=== PATIENT | male | born 1995 | race Two or more races ===

== ENCOUNTER 2022-07-18 21:40 | Inpatient (IN) | payer MEDICAID, OTHER ==
[~2022-07-18] VITALS: Ht 152.4 cm; Wt 54.0 kg
--- NOTE | 2022-07-18 21:56 | NUR ---
PATIENT WAS BROUGHT IN VIA AMBULENCE FOR UNWITNESSED SEIZURE WITH HISTORY OF SEIZURES. PATIENT HAD NO ORAL TRAUMA, NO INCONTINENCE. PATIENT AXO X0 AND IS RESPONSIVE TO PAINFUL STIMULI. PLACED ON SEIZURE PERCAUTION WITH HEAD OF THE BED ELEVATED AND HEAD TILED TO THE SIDE TO PREVENT ASPIRATION IN AN EVENT OF VOMITING. PATIENT ON MONITOR AND WILL CONTINUE TO MONITOR. VITAL SIGNS WNL
[2022-07-18 22:29] LABS: BASOPHILS # (AUTO) 0.2 K/uL (0.0-0.2); EOSINOPHILS % (AUTO) 0.4 % (0.0-6.0); HEMATOCRIT 31 % (39-51); HEMOGLOBIN 10.6 g/dL (13.5-17.5); LYMPHOCYTES # (AUTO) 1.4 K/uL (0.8-4.8); LYMPHOCYTES % (AUTO) 46.6 % (20.0-44.0); MEAN CORPUSCULAR HGB CONC 35 g/dl (31.0-36.0); MEAN CORPUSCULAR VOLUME 93 fL (80-96); MONOCYTES # (AUTO) 0.3 K/uL (0.1-1.30); MONOCYTES % (AUTO) 10.9 % (2.0-12.0); NEUTROPHILS # (AUTO) 1.1 K/uL (1.8-8.9); NEUTROPHILS % (AUTO) 36.7 % (43.0-81.0); PLATELET COUNT (AUTO) 119 K/uL (150-450); RED BLOOD CELL COUNT(AUTO) 3.28 MIL/uL (4.5-6.0); WHITE BLOOD COUNT (AUTO) 3.1 K/uL (4.3-11.0)
[2022-07-18 22:32] LABS: BASOPHILS % (AUTO) 5.4 % (0.0-2.0)
[2022-07-18 22:35] LABS: CALCIUM, SERUM 7.8 mg/dL (8.5-10.1); CREATININE 0.6 mg/dL (0.6-1.3); POTASSIUM 3.2 mmol/L (3.5-5.1)
[2022-07-18 22:42] LABS: ALBUMIN 3.1 g/dL (3.4-5.0); BILIRUBIN,DIRECT 0.5 mg/dL (0.0-0.2); BILIRUBIN,TOTAL 0.7 mg/dL (0.2-1.0); TOTAL PROTEIN, SERUM 6.7 g/dL (6.4-8.2)
[2022-07-19] MEDS ORDERED: LACTULOSE 10 G/15 ML UDC (PYXIS) PO ONE
--- NOTE | 2022-07-19 00:07 | NUR ---
COVID SWAB COLLECTED
--- NOTE | 2022-07-19 01:07 | NUR ---
epic panel paged
[2022-07-19] MEDS ORDERED: LACTULOSE 10 G/15 ML UDC (PYXIS) ONE (01:21)
[2022-07-19] MEDS ORDERED: MAGNESIUM HYDROXIDE 30 ML UDC PO PRN (01:30)
[2022-07-19] MEDS ORDERED: Thiamine 100 MG in IV D5W 50 ML IV SCH ×2 (01:30→19:00)
[2022-07-19] MEDS ORDERED: Folic acid 1 MG in IV D5W 50 ML IV SCH ×2 (01:30→11:00)
[2022-07-19] MEDS ORDERED: Z GUARD REMEDY 4 OZ OINT TP PRN (01:30)
[2022-07-19] MEDS ORDERED: ACETAMINOPHEN 325 MG TABLET PO PRN (01:30)
[2022-07-19] MEDS ORDERED: MAG HYDROX/AL HYDROX/SIMETH 30 ML UDC PO PRN (01:30)
[2022-07-19] MEDS ORDERED: ONDANSETRON HCL/PF 4 MG/2 ML VIAL IVP PRN (01:30)
--- NOTE | 2022-07-19 01:31 | NUR ---
REPORT GIVEN TO ASHLEY DOVER FOR SYLVIA
[2022-07-19 01:48] VITALS: BP 92/60
--- NOTE | 2022-07-19 02:15 | NUR ---
CERTIFIED PHLEBOTOMISTMATHEMATICAL ENGINEER NOTE RECEIVED PATIENT IN BED; AWAKE, ALERT AND ORIENTED X 1. BREATHING EVEN AND NONLABORED. ON ROOM AIR; TOLERATING WELL. WITH IV ACCESS ON LEFT WRIST 20G; PATENT, INTACT AND SALINE LOCKED. NOT IN ANY FORM OF RESPIRATORY DISTRESS. ON TELEMETRY MONITORING WITH READING OF SR 80 BPM. INVENTORY OF PERSONAL BELONGINGS DONE. SAFETY MEASURES IMPLEMENTED: PAD SIDE RAILS, CALL LIGHT AND TABLE WITHIN REACH, SIDE RAILS UP X 3, BED IN LOWEST LOCKED POSITION. WILL CONTINUE TO MONITOR.
[2022-07-19] MEDS: IV D5/0.45 NACL 1,000 ML IV PRN ×2 (02:56→20:41)
--- NOTE | 2022-07-19 03:45 | NUR ---
RN NOTE PT PULLED IV LINE; PRESSURE DRESSING IN PLACED. NO BLEEDING. REMOVED TELEBOX; PLACED ON STAND BY MODE. CN AWARE. IV REINSERTION DONE AT RIGHT AC 20G; PATENT, INTACT AND SALINE LOCKED.
[2022-07-19 04:00] VITALS: BP 95/63
[2022-07-19] MEDS: LORAZEPAM INJ 2 MG/ML VIAL IV PRN (04:16)
--- NOTE | 2022-07-19 04:16 | NUR ---
RN NOTE PT IS TRYING TO REMOVE HIS IV LINE, THROWING LINENS. PRN ATIVAN 0.5 MG GIVEN IVP ORDERED; WILL CONTINUE TO MONITOR PT.
--- NOTE | 2022-07-19 05:00 | NUR ---
RN NOTE FOLIC ACID 1MG IN IV D5W 50 ML NOT GIVEN; NOT AVAILABLE. BLADE GROOVER TEO AND JAMIE; AWARE. WILL ENDORSED TO MORNING SHIFT.
[2022-07-19] MEDS ORDERED: Thiamine 100 MG/ML VIAL ONE (05:42)
--- NOTE | 2022-07-19 06:45 | NUR ---
RN NOTE PT POTASSIUM LEVEL IS 3.2. DREDGE WORKER HOSPITALIST TANYA TRUJILLO MADE AWARE; AWAITING FOR REPLY. WILL ENDORSED TO CHRIS DOVER FOR FOLLOW UP.
[2022-07-19] MEDS ORDERED: LACTULOSE UDC 200 G in SODIUM CHLORIDE IRRIG SOLUTION 400 ML IR ONE (07:00)
--- NOTE | 2022-07-19 07:20 | NUR ---
CONTINUING EDUCATION DIRECTOR CLOSING NOTE PATIENT IN BED; ASLEEP; EASILY AROUSABLE; A/O X1. RESPIRATION EVEN AND UNLABORED. STABLE ON ROOM AIR. NO S/S OF RESPIRATORY DISTRESS. NO S/S OF PAIN OR DISCOMFORT. NEEDS ATTENDED. SAFETY MEASURES IN PLACE. ENDORSED TO MORNING SHIFT FOR SYLVIA.
--- NOTE | 2022-07-19 07:25 | NUR ---
RN OPENING NOTES RECEIVED PATIENT IN BED ASLEEP, EASILY AROUSED, OF SIGNS OF ACUTE DISTRESS NOTED. ON ROOM AIR TOLERATING WELL. NO SOB NOTED, BREATHING EVEN AND UNLABORED. NOTED WITH IV ACCESS ON RIGHT ANTECUBITAL #20G, INTACT AND PATENT, WITH IVF D5 1/2 NS @100ML/HR, INFUSING WELL. SAFETY AND SEIZURE PRECAUTIONS OBSERVED, BED IN LOWEST AND LOCKED POSITION, SIDE RAILS UP X3, CALL LIGHT PLACED WITHIN EASY REACH. WILL CONTINUE TO MONITOR PATIENT.
[2022-07-19 08:00] VITALS: BP 94/69
[2022-07-19] MEDS: PANTOPRAZOLE 40 MG VIAL IV SCH (08:12)
[2022-07-19 09:10] LABS: BILIRUBIN,DIRECT 0.4 mg/dL (0.0-0.2); BILIRUBIN,TOTAL 0.7 mg/dL (0.2-1.0); TOTAL PROTEIN, SERUM 6.6 g/dL (6.4-8.2)
--- NOTE | 2022-07-19 09:51 | NUR ---
RN NOTE SEEN BY DR. SALAZAR, PATIENT C/O PAIN ON LEFT ANKLE AND ALSO NOTED WITH BLOOD BLISTER? MD ORDERED LEFT ANKLE X-RAY AND WOUND CARE CONSULT, ORDERS NOTED AND CARRIED OUT. ASKED MD IF HE STILL WANTS THE LACTULOSE IRRIGATION TO BE GIVEN, PER MD HE'LL LOOK AT PATIENTS CHART AND MIGHT JUST GIVE PO.
--- NOTE | 2022-07-19 10:37 | NUR ---
RN NOTE LEFT ANKLE X-RAY DONE.
[2022-07-19] MEDS: LACTULOSE 10 G/15 ML UDC (PYXIS) PO SCH ×3 (11:40→23:45)
[2022-07-19 17:00] VITALS: BP 105/71
--- NOTE | 2022-07-19 18:30 | NUR ---
RN NOTE LEFT ANKLE XRAY RESULT RELAYED TO DR. SALAZAR WITH ORDER FOR ORTHO CONSULT. CN ASHLEY AWARE. ORTHO CONSULT ORDERED.
--- NOTE | 2022-07-19 18:54 | NUR ---
RN CLOSING NOTES PATIENT IN BED ASLEEP, EASILY AROUSED, A/PO X4, VERBALLY RESPONSIVE. NO SIGNS OF ACUTE DISTRESS NOTED. STABLE ON ROOM AIR, NO SOB NOTED, BREATHING EVEN AND UNLABORED. IV ACCESS ON RIGHT ANTECUBITAL #20G, INTACT AND PATENT, WITH IVF D5 1/2 NS @100ML/HR, INFUSING WELL. SAFETY AND SEIZURE PRECAUTIONS OBSERVED, BED IN LOWEST AND LOCKED POSITION, SIDE RAILS UP X3, CALL LIGHT PLACED WITHIN EASY REACH. WILL ENDORSE TO N EXT SHIFT FOR SYLVIA.
--- NOTE | 2022-07-19 20:00 | NUR ---
RN OPENING NOTE: PATIENT RECEIVED IN BED AWAKE. A/O X4, PLEASANT AND COOPERATIVE. DENIES PAIN. VITAL SIGNS STABLE. TOLERATING ROOM AIR WITHOUT ANY PROBLEMS. NO SOB OR DYSPNEA NOTED. BREATHING IS EVEN AND UNLABORED. IV ACCESS TO RIGHT ANTECUBITAL #20G, INTACT AND PATENT, WITH IV D5 1/2 NS @100ML/HR, INFUSING WELL. SAFETY AND SEIZURE PRECAUTIONS OBSERVED: BED IN LOWEST AND LOCKED POSITION, SIDE RAILS UP X3, CALL LIGHT PLACED WITHIN EASY REACH. WILL CONTINUE TO MONITOR PATIENT.
[2022-07-20] MEDS: LACTULOSE 10 G/15 ML UDC (PYXIS) PO SCH ×4 (05:17→23:28)
[2022-07-20] MEDS: PANTOPRAZOLE 40 MG VIAL IV SCH (06:33)
[2022-07-20 06:59] LABS: BASOPHILS # (AUTO) 0.2 K/uL (0.0-0.2); BASOPHILS % (AUTO) 4.4 % (0.0-2.0); EOSINOPHILS % (AUTO) 0.4 % (0.0-6.0); HEMATOCRIT 31 % (39-51); LYMPHOCYTES # (AUTO) 0.9 K/uL (0.8-4.8); LYMPHOCYTES % (AUTO) 22.5 % (20.0-44.0); MEAN CORPUSCULAR HGB CONC 35 g/dl (31.0-36.0); MEAN CORPUSCULAR VOLUME 92 fL (80-96); MONOCYTES # (AUTO) 0.3 K/uL (0.1-1.30); MONOCYTES % (AUTO) 7.4 % (2.0-12.0); NEUTROPHILS # (AUTO) 2.7 K/uL (1.8-8.9); NEUTROPHILS % (AUTO) 65.3 % (43.0-81.0); PLATELET COUNT (AUTO) 134 K/uL (150-450); RED BLOOD CELL COUNT(AUTO) 3.38 MIL/uL (4.5-6.0); WHITE BLOOD COUNT (AUTO) 4.2 K/uL (4.3-11.0)
[2022-07-20 07:00] VITALS: BP 135/73
--- NOTE | 2022-07-20 07:27 | NUR ---
WOUND CARE CONSULT: PT PRESENTS WITH LEFT GREAT TOE DRY ESCHAR, PRESENT ON ADMISSION. DR GARSIA FOLLOWING PT. MD IN AGREEMENT WITH PLAN OF CARE.
--- NOTE | 2022-07-20 07:30 | NUR ---
RN OPENING NOTE- PATIENT IN BED AWAKE. A/O X4, NO EVIDENCE OF WITHDRAWAL OR DETOX SYMPTOMS, NO DT, NO TREMULOUSNESS, VS STABLE, NO DIAPHORESIS OR ANXIOUSNESS, DENIES PAIN. TOLERATING ROOM AIR. NO SOB OR DYSPNEA NOTED. BREATHING IS EVEN AND UNLABORED. IV ACCESS TO RIGHT ANTECUBITAL #20G, INTACT AND PATENT, WITH IV D5 1/2 NS @100ML/HR, INFUSING WELL. SAFETY AND SEIZURE PRECAUTIONS OBSERVED: BED IN LOWEST AND LOCKED POSITION, SIDE RAILS UP X3, CALL LIGHT PLACED WITHIN EASY REACH. WILL CONTINUE TO MONITOR PATIENT. ASSIST PRN
[2022-07-20 07:44] LABS: CALCIUM, SERUM 7.8 mg/dL (8.5-10.1); PHOSPHORUS 3.6 mg/dL (2.5-4.9); POTASSIUM 3.4 mmol/L (3.5-5.1)
--- NOTE | 2022-07-20 08:19 | NUR ---
RN CLOSING NOTE: PATIENT LYING IN BED AWAKE, A/O X4. ALL DUE MEDS GIVEN DURING NIGHT. DENIES PAIN. VITAL SIGNS STABLE. TOLERATING ROOM AIR WITHOUT ANY PROBLEMS. NO SOB OR DYSPNEA NOTED. BREATHING IS EVEN AND UNLABORED. IV ACCESS TO RIGHT ANTECUBITAL #20G, INTACT AND PATENT, WITH IV D5 1/2 NS @100ML/HR, INFUSING WELL. SAFETY AND SEIZURE PRECAUTIONS MAINTAINED: BED IN LOWEST AND LOCKED POSITION, SIDE RAILS UP X3, CALL LIGHT PLACED WITHIN EASY REACH. WILL ENDORSE TO NEXT SHIFT FOR SYLVIA.
[2022-07-20 09:13] LABS: MAGNESIUM 0.9 mg/dL (1.8-2.4)
--- NOTE | 2022-07-20 09:41 | NUR ---
RN NOTE LAB PHONED CRITICAL VALUE MG-0.9. DR. SALAZAR NOTIFIED AND ORDERED 4G MG-COMPLIED.
[2022-07-20 09:47] LABS: THYROID STIMULATING HORMONE 3.125 uIU/mL (0.358-3.74)
[2022-07-20] MEDS ORDERED: Magnesium 1GM/D5W 100ML PREMIX 100 ML IV SCH (10:00)
[2022-07-20] MEDS: MAGNESIUM OXIDE 400 MG TABLET PO SCH ×2 (11:02→12:13)
[2022-07-20] MEDS: FOLIC ACID 1 MG TABLET PO SCH (11:02)
[2022-07-20] MEDS: LORAZEPAM INJ 2 MG/ML VIAL IV PRN ×2 (11:18→20:02)
--- NOTE | 2022-07-20 11:19 | NUR ---
RN NOTE NOTED TREMULOUSNESS AND ANXIETY, ATIVAN 1MG IVP ADMINISTERED. WILL CONTINUE TO MONITOR.
[2022-07-20 12:00] VITALS: BP 127/94
--- NOTE | 2022-07-20 14:39 | NUR ---
SS consult requested for alcohol use disorder, SW will follow up at a later time.
[2022-07-20 16:00] VITALS: BP 116/75
[2022-07-20] MEDS: THIAMINE HCL 100 MG TABLET PO SCH (18:07)
--- NOTE | 2022-07-20 18:48 | NUR ---
RN CLOSING NOTE Patient in bed, awake, alert and oriented x4. Able to make needs known. Afebrile and not on any form of acute distress. No SOB/wheezing noted. Medicated as ordered. No seizure activity, no tremors or agitation noted after ativan administration. Restarted IV hydration of D5 1/2NS infusing well regulated at 100cc/hr, patient was refusing IVF earlier in shift. Offered and encouraged fluids as tolerated. Safety measures in place. Bed in lowest position. Call light within easy reach. Side rails up for safety. All nursing needs attended.
[2022-07-20 20:00] VITALS: BP 121/80
--- NOTE | 2022-07-20 20:30 | NUR ---
RN OPENING NOTE: PATIENT LYING IN BED AWAKE. A/O X 4 AND ABLE TO MAKE NEEDS KNOWN. NO SOB OR DYSPNEA NOTED. BREATHING IS EVEN AND UNLABORED. VITAL SIGNS STABLE. NO SIGNS OF WITHDRAWAL OR DETOX SYMPTOMS. NO DELIRIUM TREMORS NOTED. DENIES PAIN. TOLERATING ROOM AIR. IV ACCESS TO RIGHT ANTECUBITAL #20G, INTACT AND PATENT, WITH IV D5 1/2 NS @100ML/HR, INFUSING WELL. SAFETY AND SEIZURE PRECAUTIONS OBSERVED: BED IN LOWEST AND LOCKED POSITION, SIDE RAILS UP X3, CALL LIGHT PLACED WITHIN EASY REACH. WILL CONTINUE TO MONITOR PATIENT.
[2022-07-21] VITALS: BP 131/67
[2022-07-21] MEDS: IV D5/0.45 NACL 1,000 ML IV PRN ×2 (01:27→21:32)
[2022-07-21] MEDS: LACTULOSE 10 G/15 ML UDC (PYXIS) PO SCH ×4 (04:48→23:34)
[2022-07-21 06:41] LABS: BASOPHILS # (AUTO) 0.2 K/uL (0.0-0.2); BASOPHILS % (AUTO) 4.1 % (0.0-2.0); EOSINOPHILS % (AUTO) 1.5 % (0.0-6.0); HEMATOCRIT 33 % (39-51); HEMOGLOBIN 11.1 g/dL (13.5-17.5); LYMPHOCYTES # (AUTO) 1.4 K/uL (0.8-4.8); LYMPHOCYTES % (AUTO) 30.7 % (20.0-44.0); MEAN CORPUSCULAR HGB CONC 34 g/dl (31.0-36.0); MEAN CORPUSCULAR VOLUME 94 fL (80-96); MONOCYTES # (AUTO) 0.4 K/uL (0.1-1.30); MONOCYTES % (AUTO) 8.4 % (2.0-12.0); NEUTROPHILS # (AUTO) 2.4 K/uL (1.8-8.9); NEUTROPHILS % (AUTO) 55.3 % (43.0-81.0); PLATELET COUNT (AUTO) 132 K/uL (150-450); RED BLOOD CELL COUNT(AUTO) 3.48 MIL/uL (4.5-6.0); WHITE BLOOD COUNT (AUTO) 4.4 K/uL (4.3-11.0)
[2022-07-21 07:00] VITALS: BP 146/93
--- NOTE | 2022-07-21 07:30 | NUR ---
RN OPENING NOTES RECEIVED PATIENT IN BED AWAKE. A/O X4, VERBALLY RESPONSIVE, NO OF SIGNS OF ACUTE DISTRESS NOTED. ON ROOM AIR TOLERATING WELL. NO SOB NOTED, BREATHING EVEN AND UNLABORED. NOTED WITH IV ACCESS ON RIGHT ANTECUBITAL #20G, INTACT AND PATENT, WITH IVF D5 1/2 NS @100ML/HR, INFUSING WELL. SAFETY AND SEIZURE PRECAUTIONS OBSERVED, BED IN LOWEST AND LOCKED POSITION, SIDE RAILS UP X2, CALL LIGHT PLACED WITHIN EASY REACH. WILL CONTINUE TO MONITOR PATIENT.
[2022-07-21 07:50] LABS: ALBUMIN 3.5 g/dL (3.4-5.0); BILIRUBIN,DIRECT 0.6 mg/dL (0.0-0.2); BILIRUBIN,TOTAL 1.3 mg/dL (0.2-1.0); CALCIUM, SERUM 8.1 mg/dL (8.5-10.1); CREATININE 0.7 mg/dL (0.6-1.3); MAGNESIUM 1.6 mg/dL (1.8-2.4); PHOSPHORUS 3.1 mg/dL (2.5-4.9); POTASSIUM 3.2 mmol/L (3.5-5.1); TOTAL PROTEIN, SERUM 7.3 g/dL (6.4-8.2)
[2022-07-21] MEDS: PANTOPRAZOLE 40 MG TABLET.DR PO SCH (08:48)
[2022-07-21] MEDS: THIAMINE HCL 100 MG TABLET PO SCH (08:48)
[2022-07-21] MEDS: FOLIC ACID 1 MG TABLET PO SCH (08:48)
[2022-07-21] MEDS: Magnesium 1GM/D5W 100ML PREMIX 100 ML IV SCH ×4 (09:27→12:44)
--- NOTE | 2022-07-21 10:23 | NUR ---
Potato Chip Cooker Machine Note SW received a consult request for alcohol use. Pt. is a 27 y.o. male who was admitted for hyperammonemia, ETOH. SW met with pt. at bedside. Pt. was receiving tx by nurse at the time of visit. SW will follow up again with in an hour.
--- NOTE | 2022-07-21 11:40 | NUR ---
Forestry Foreman Consult SW received a consult request for alcohol abuse. Pt. is a 27 y.o. male who was admitted for alcohol intoxication. SW met with pt. at bedside. Pt. was alert and oriented x4. Pt. maintained normal eye contact, was cooperative throughout assessment and had a disheveled appearance with a congruent affect. Pt. reported feeling well and expressed wanting help to stop drinking. Pt. provided new contact information details for his mother (Fanta Barraza [address]: [address] [place] [address]), his grandmother (Lauren Das [phone]). Pt. reported he was living with his uncle at [address] [place] [address] but will be staying at his mothers apartment after discharge. Pt. states he is ambulatory. Pt. reported no hx of psychiatric dx. Per pt. is not receiving financial assistance but requested support in applying for benefits. Per pt. he lost medicare benefits reported migrating from [facility]. Pt. reported hx of alcohol abuse, use of crystal meth, cannabis and cigarettes. Pt. disclosed family hx of alcohol abuse and health complications for his father ( due to alcohol abuse) and grandfather due to alcohol abuse. Per pt. report he does not experience visual or auditory hallucinations. ADAMARIS assessed for suicidal and homicidal ideation in which pt. denied plan, means, or intent. DC plan: When asked pt.s plan after discharge, pt. reported he was going to his mothers apartment in [place]. ADAMARIS provided pt. with addiction and mental health resources in which pt. accepted them. ADAMARIS provided pt. with information and instructions on how to apply for [employer] benefits in which pt. accepted them. ADAMARIS discussed with nurse. Counseling--Outpatient [facility] [address] [facility] [address] (Specializes in in-depth psychotherapy for emotional distress: anxiety, depression, interpersonal conflicts, life transitions, childhood abuse) [facility] [address] [place] [address] (Assist with solving problem marital difficulties, separation & divorce, aging parents, & grief, chronic & terminal illness) [facility] [address] [place] [address] (Deal with loss & grief, anxiety, marital difficulties) [facility] [address] [place] [address] (Provide in-home mental services to people who are incapable of leaving their homes) [facility] [address] [facility] [place] [address] [facility] [address] [place] [address] Mental Health Services Deann Vickie [facility] [address] [place] [address] Services: Outpatient therapy for children, teens, young adults, adults, older adults, and families; Psychiatric services, medication support Psychiatric Outpatient Services [facility] Partial Hospitalization and Intensive Outpatient Program (Managed Care and Transfer Only)[address] [facility]. [facility] [phone] [facility] Partial Hospitalization and Outpatient [id number] [facility] [address] [place], [place] [phone] [facility] [id number] [place], [place] [phone] [facility] Partial Hospitalization and Outpatient [address] [place], [phone] Crisis and Hotline Telephone Numbers 24-Hour service unless stated [place] Crisis Hotlines: [place] Mental Health/Crisis Line........[phone] Suicide Prevention Center (24 Hours).......[phone] Suicide Prevention Crisis Center.......[phone] (24 Hours) Assaults Against Women Hotline.........834.977.1845 (24 Hours -- [facility]) Women and Children Crisis Longterm...........[phone] (24 Hours) Child Abuse Hotline............392.515.7623 ([facility] of Children[facility] Services Rape Treatment [facility] (24 Hours)..........[phone] Alcoholics Anonymous (24 Hours)..........[phone] Cocaine Anonymous (24 Hours)............[phone] Narcotics Anonymous (24 Hours)..........[phone] [address] [facility] [address], [place] [address] [employer] Application Apply for benefits over the phone. Call .
[2022-07-21 12:00] VITALS: BP 120/84
[2022-07-21] MEDS: POTASSIUM CL. PREMIX PERIPHER. 50 ML IV SCH ×4 (12:17→15:28)
[2022-07-21 16:00] VITALS: BP 116/88
--- NOTE | 2022-07-21 18:46 | NUR ---
RN CLOSING NOTES PATIENT IN BED AWAKE. A/O X4, VERBALLY RESPONSIVE, NO OF SIGNS OF ACUTE DISTRESS NOTED.REMAINS STABLE ON ROOM AIR, SOB NOTED, BREATHING EVEN AND UNLABORED. IV ACCESS ON RIGHT ANTECUBITAL #20G, INTACT AND PATENT, WITH IVF D5 1/2 NS @100ML/HR, INFUSING WELL. ON TELE MONITOR SHOWING SINUS RHYTHM, HR AT 86. NO EPISODES OF SEIZURE NOTED THIS SHIFT. SAFETY AND SEIZURE PRECAUTIONS OBSERVED. BED IN LOWEST AND LOCKED POSITION, SIDE RAILS UP X2, CALL LIGHT PLACED WITHIN EASY REACH. WILL ENDORSE TO NEXT SHIFT FOR CONTINUITY OF CARE.
--- NOTE | 2022-07-21 19:44 | NUR ---
TRIMMER HELPER CLOSING NOTES: RECEIVED PATIENT AWAKE IN BED, BED IN LOW POSITION CALL LIGHTS WITHIN REACH, NO COMPLAIN OF PAIN AND DISCOMFORT AT THIS TIME, ON ROOM AIR SATURATING WELL, ON TELE MONITOR-SR79 WITH ST WAVE ELEVATED, IV LINE AT RAC#20 WITH ONGOING D5 1/2 NSS@100ML/HR INFUSING WELL, PATIENT KEPT CLEAN AND DRY ALL NEEDS MET WILL CONTINUE TO MONITOR
[2022-07-21 20:00] VITALS: BP 139/84
[2022-07-22] VITALS: BP 119/85
[2022-07-22 04:00] VITALS: BP 104/72
[2022-07-22] MEDS: LACTULOSE 10 G/15 ML UDC (PYXIS) PO SCH ×4 (05:33→22:46)
--- NOTE | 2022-07-22 06:37 | NUR ---
CARBON ROD INSERTER CLOSING NOTES: PATIENT SLEEP IN BED COMFORTABLY, AROUSABLE TO VERBAL STIMULI, BED IN LOW POSITION CALL LIGHTS WITHIN REACH, NO COMPLAIN OF PAIN AND DISCOMFORT AT THIS TIME, ON ROOM AIR SATURATING WELL, PATIENT IS A/OX4 AMBULATORY AND ABLE TO MAKE NEEDS KNOWN, WITH IV LINE AT RAC#20 WITH ONGOING D5 1/2 NSS@100 ML/HR INFUSING WELL, ON TELE MONITOR- SR- 70, PATIENT KEPT CLEAN AND DRY ALL NEEDS MET WILL CONTINUE TO MONITOR.
--- NOTE | 2022-07-22 07:47 | NUR ---
RN OPENING NOTE PATIENT AWAKE IN BED RESTING. A/O X4, NO PAIN NOTED AT THIS TIME. ON ROOM AIR, NO DISTRESS OR SHORTNESS OF BREATH NOTED. IV ACCESS RAC #20G, INTACT, PATENT AND FLUSHING WELL. PATIENT ON EXTERNAL HOME CARE SPECIALIST WITH CURRENT READING OF SR AND HR OF 85, NO CARDIAC DISTRESS NOTED. FALL AND SAFETY MEASURES IN PLACE, BED ALARM ON, BED IN LOW AND LOCK POSITION, CALL LIGHT AND TABLE WITHIN EASY REACH, SIDE RAILS UP X2. WILL CONTINUE TO MONITOR.
[2022-07-22 08:00] VITALS: BP 111/87
[2022-07-22] MEDS: THIAMINE HCL 100 MG TABLET PO SCH (09:33)
[2022-07-22] MEDS: FOLIC ACID 1 MG TABLET PO SCH (09:33)
[2022-07-22] MEDS: PANTOPRAZOLE 40 MG TABLET.DR PO SCH (09:33)
[2022-07-22] MEDS: IV D5/0.45 NACL 1,000 ML IV PRN (09:37)
[2022-07-22] MEDS: Potassium Chloride 20 MEQ in IV NS 0.9% 1,000 ML IV SCH ×2 (12:22→21:40)
[2022-07-22 16:00] VITALS: BP 113/82
--- NOTE | 2022-07-22 17:00 | NUR ---
RN NOTE WHILE PATIENT WAS WAITING FOR FAMILY TO BE FERTILIZER LOADER FOR DISCHARGE, PATIENT HAD A SEIZURE EPISODE, 20 SECONDS, WHILE HAVING DINNER. PATIENT WAS FOUND ON THE FLOOR, NO INJURY, NO COMPLAIN OF PAIN. DOCTOR RADHA CRABTREE WAS INFORMED, DOCTOR DID NOT ORDER X-RAY OR CT. DOCTOR ORDER AMMONIA LEVEL AND TO MONITOR FOR FURTHER SEIZURE ACTIVITY. V/S WERE TAKEN, STABLE, PATIENT DENIES ANY PAIN OR DISCOMFORT, WILL CONTINUE TO MONITOR.
[2022-07-22] MEDS: LORAZEPAM INJ 2 MG/ML VIAL IV PRN (17:14)
--- NOTE | 2022-07-22 19:04 | NUR ---
RN CLOSING NOTE PATIENT AWAKE IN BED RESTING. A/O X4, NO PAIN NOTED AT THIS TIME. ON ROOM AIR, NO DISTRESS OR SHORTNESS OF BREATH NOTED. IV ACCESS RAC #20G, INTACT, PATENT AND FLUSHING WELL. PATIENT ON EXTERNAL STOCK WORKER WITH CURRENT READING OF SR AND HR OF 79, NO CARDIAC DISTRESS NOTED. SCHEDULE MEDICATIONS ADMINISTERED. FALL AND SAFETY MEASURES IN PLACE, BED ALARM ON, BED IN LOW AND LOCK POSITION, CALL LIGHT AND TABLE WITHIN EASY REACH, SIDE RAILS UP X2. WILL ENDORSE TO OYSTERMAN.
--- NOTE | 2022-07-22 19:57 | NUR ---
RECEIVED PATIENT IN BED, ALERT/ORIENTED X4, NIUEAN SPEAKING ONLY, ROOM AIR, NO COMPLAIN OF PAIN, SEIZURE PRECAUTION, KEPT SAFE, CALL LIGHT WITHIN REACH.
[2022-07-22 20:00] VITALS: BP_SYST 124; BP_DIAS 77; BP_DIAS 87
[2022-07-23] VITALS: BP 124/86
[2022-07-23 00:29] VITALS: BP 124/86
[2022-07-23 04:00] VITALS: BP 115/73
[2022-07-23] MEDS: LACTULOSE 10 G/15 ML UDC (PYXIS) PO SCH ×2 (05:11→11:49)
--- NOTE | 2022-07-23 06:49 | NUR ---
ALERT/ORIENTED X3, ROOM AIR, NO COMPLAIN OF PAIN, SEIZURE PRECAUTION, LACTULOSE GIVEN, CONTINUE NS + KCL 20 MEQ AT 100 ML/HR. DISCHARGE HELD, HAD SEIZURE EPISODE AND WAS FOUND ON FLOOR PER AM NURSE REPORT. NO SEIZURE DURING SHIFT. FALL PRECAUTION.
--- NOTE | 2022-07-23 07:45 | NUR ---
RN OPENING NOTE PATIENT AWAKE IN BED RESTING. A/O X4, NO PAIN NOTED AT THIS TIME. ON ROOM AIR, NO DISTRESS OR SHORTNESS OF BREATH NOTED. IV ACCESS RAC #20G, INTACT, PATENT AND FLUSHING WELL. PATIENT ON EXTERNAL CLIENT STRATEGIST WITH CURRENT READING OF SR AND HR OF 82, NO CARDIAC DISTRESS NOTED. FALL AND SAFETY MEASURES IN PLACE, BED ALARM ON, BED IN LOW AND LOCK POSITION, CALL LIGHT AND TABLE WITHIN EASY REACH, SIDE RAILS UP X2. WILL CONTINUE TO MONITOR.
[2022-07-23] MEDS: PANTOPRAZOLE 40 MG TABLET.DR PO SCH (09:38)
[2022-07-23] MEDS: THIAMINE HCL 100 MG TABLET PO SCH (09:38)
[2022-07-23] MEDS: FOLIC ACID 1 MG TABLET PO SCH (09:38)
[2022-07-23] MEDS: Potassium Chloride 20 MEQ in IV NS 0.9% 1,000 ML IV SCH (09:44)
[2022-07-23 10:10] VITALS: BP 103/76
--- NOTE | 2022-07-23 14:00 | NUR ---
QUALITY AUDIT REPRESENTATIVE NOTE PATIENT WAS DISCHARGE IN STABLE MEDICAL CONDITION. A/O X4. V/S TAKEN STABLE AND RECORDED. NO IV ACCESS. SKIN ASSESSMENT DONE AND PICTURES TAKEN. NAME ARM BAND REMOVED. EXTERNAL RECYCLE WORKER WAS REMOVED AND RETURNED TO TELE DESK. ALL BELONGINGS CHECKED AND SIGNED. HEALTH TEACHING AND DISCHARGE INSTRUCTIONS GIVEN AND VERBALIZED UNDERSTANDING. INSTRUCTED TO FOLLOW UP WITH HIS PRIMARY CARE DOCTOR. INSTRUCTED TO FOLLOW UP WITH ORTHOPEDIC- FOOT/ANKLE, PATIENT WAS PROVIDED WITH PAPER-WORK OF [facility] RECOMMENDATION. DISCUSSED PRESCRIPTIONS WITH PATIENT. INSTRUCTED IN CASE OF EMERGENCY TO CALL 911 OR GO TO NEAREST ER. PATIENT LEFT UNIT VIA WHEELCHAIR WITH NO SIGNS OF DISTRESS, ACCOMPANIED BY RN TO THE LOBBY. PATIENT WENT HOME ALONE, BUS-PASS WAS PROVIDED. CHARGE NURSE AWARE OF DISCHARGE.
== END 2022-07-23 14:05 | disposition home or self-care (01) | DRG 775 ==
LOC: ER 21:43 → TELE 07-19 01:04
PROVIDERS: ADMIT Internal Medicine
DX: F10.129 Alcohol abuse with intoxication, unspecified (principal); G92.9 Unspecified toxic encephalopathy; D61.818 Other pancytopenia; K76.82 Hepatic encephalopathy; E72.20 Disorder of urea cycle metabolism, unspecified; R56.9 Unspecified convulsions; E88.09 Other disorders of plasma-protein metabolism, not elsewhere classified; E87.1 Hypo-osmolality and hyponatremia; Z20.822 Contact with and (suspected) exposure to COVID-19; Y90.8 Blood alcohol level of 240 mg/100 ml or more; E87.6 Hypokalemia; E83.42 Hypomagnesemia; D72.829 Elevated white blood cell count, unspecified; Z91.14 Patient's other noncompliance with medication regimen; S82.832A Other fracture of upper and lower end of left fibula, initial encounter for closed fracture; X58.XXXA Exposure to other specified factors, initial encounter; Y92.9 Unspecified place or not applicable; S92.102A Unspecified fracture of left talus, initial encounter for closed fracture; S90.111A Contusion of right great toe without damage to nail, initial encounter; R62.7 Adult failure to thrive
CPT/HCPCS: 36415; 70450-TC; 73610-TC; 73700-TC; 76700-TC; 80048-TC; 80076-TC; 82140-TC; 82247-TC; 82248-TC; 82962-TC; 83735-TC; 84100-TC; 84443-TC; 85025-TC; 87081-TC; A4217; C9113; C9803; G0378; G0480; J2060; J3411; J3475; J3480; J3490; J7030; J7060